=== PATIENT | female | born 1965 | race Caucasian/White ===

== ENCOUNTER → 2024-12-08 07:56 | Outpatient (REF) | payer BC, SELFPAY | LOC: RAD 07:56 | PROVIDERS: ATTENDING PHYSICIAN Obstetrics & Gynecology; FAMILY PHYSICIAN Family Medicine | DX: Z78.0 Asymptomatic menopausal state (principal) | CPT/HCPCS: 77080 ==

== ENCOUNTER → 2025-08-10 17:31 | Outpatient (REF) | payer BC, SELFPAY | LOC: RAD 17:31 | PROVIDERS: ATTENDING PHYSICIAN Physician Assistant; FAMILY PHYSICIAN Family Medicine | DX: S93.601A Unspecified sprain of right foot, initial encounter (principal) | CPT/HCPCS: 73630 ==